=== PATIENT | female | born 1985 | race Caucasian/White ===

== ENCOUNTER 2020-02-07 13:30 | Emergency (ER) | payer OTHER ==
[~2020-02-07] VITALS: Ht 152.4 cm; Wt 55.8 kg
[2020-02-07 13:32] VITALS: BP 141/90
[2020-02-07] MEDS ORDERED: ONDANSETRON ODT 4 MG ONE (13:37)
[2020-02-07] MEDS ORDERED: SODIUM CHLORIDE 0.9% 1,000ML IVBOLUS ONE (14:00)
[2020-02-07] MEDS ORDERED: ONDANSETRON ODT 4 MG PO ONE (14:00)
[2020-02-07 14:16] LABS: BASOPHILS # (AUTO) 0.05 x10^3/uL (0-0.1); BASOPHILS % (AUTO) 1 % (0-1); EOSINOPHILS # (AUTO) 0.09 x10^3/uL (0-0.4); EOSINOPHILS % (AUTO) 2 % (1-7); LYMPHOCYTES # (AUTO) 1.13 x10^3/uL (1-3.4); LYMPHOCYTES % (AUTO) 19 % (22-44); MD NO; MEAN CORPUSCULAR HEMOGLOBIN 30.2 pg (27.0-34.8); MEAN CORPUSCULAR HGB CONC 32.5 g/dL (32.4-35.8); MEAN CORPUSCULAR VOLUME 92.7 fL (80-100); MEAN PLATELET VOLUME 8.2 fL (7.4-10.4); MONOCYTES # (AUTO) 0.45 x10^3/uL (0.2-0.8); MONOCYTES % (AUTO) 8 % (2-9); NEUTROPHILS # (AUTO) 4.29 x10^3/uL (1.8-6.8); NEUTROPHILS % (AUTO) 71 % (42-75); PLATELET COUNT 228 x10^3/uL (130-400); RED BLOOD COUNT 4.64 x10^6/uL (3.82-5.3); RED CELL DISTRIBUTION WIDTH 13.7 % (9.6-15.2)
--- NOTE | 2020-02-07 14:20 | NUR ---
WITH REASSESSMNET-PATIENT REPORTS "MY NAUSE IS COMPLETELY RESOLVED. CAN I JUST DRINK SOME WATER INSTEAD OF THE IV." REMANUFACTURING TECHNICIAN CLARIFIED WITH PROVIDER-TO D/C IVF BOLUS
[2020-02-07 14:25] LABS: ALANINE AMINOTRANSFERASE 16 U/L (12-78); ALBUMIN 3.3 g/dL (3.4-5.0); ANION GAP 4 mmol/L (5-15); CALCIUM 9.1 mg/dL (8.5-10.1); CHLORIDE 106 mmol/L (98-107); CREATININE 0.89 mg/dL (0.55-1.02)
[2020-02-07 14:30] LABS: ALKALINE PHOSPHATASE 45 U/L (45-117); BILIRUBIN,TOTAL 0.3 mg/dL (0.2-1.0); TOTAL PROTEIN 6.8 g/dL (6.4-8.2)
[2020-02-07 14:50] LABS: MICROSCOPIC INDICATED
== END 2020-02-07 16:15 | disposition home or self-care (01) ==
LOC: ED 14:48
DX: N30.00 Acute cystitis without hematuria (principal); H00.012 Hordeolum externum right lower eyelid; R11.10 Vomiting, unspecified
CPT/HCPCS: 36415; 80053; 81001; 84703; 85025; 87077; 87086; 99283; Q0162; 87186